=== PATIENT | female | born 1940 | race Caucasian/White ===

== ENCOUNTER 2017-02-08 13:44 | Emergency (ER) | payer MEDICARE, OTHER ==
[~2017-02-08] VITALS: Ht 147.3 cm; Wt 59.0 kg
[~2017-02-08 13:44] MED LIST: HYDR-762 PO; QUET25TA26 PO; SERT25TA83 PO
[2017-02-08] MEDS ORDERED: IBUPROFEN 600 MG TAB PO ONE (14:00)
[2017-02-08] MEDS ORDERED: LORAZEPAM 0.5 MG TAB PO ONE (14:00)
[2017-02-08] MEDS ORDERED: QUET25TA26 PO (14:13)
[2017-02-08] MEDS ORDERED: TRAM-40 PO (14:14)
[2017-02-08 14:40] VITALS: Ht 147.3 cm; Wt 59.0 kg
[2017-02-08 15:22] LABS: ADD UMIC YES; UR ASCORBIC ACID NEGATIVE (NEGATIVE); UR BACTERIA FEW /HPF (NONE SEEN); UR BILIRUBIN (Dip) NEGATIVE (NEGATIVE); UR BLOOD (Dip) 1+ mg/dL (NEGATIVE); UR CLARITY SLIGHTLY CLOUDY (CLEAR); UR COLOR YELLOW (YELLOW); UR GLUCOSE (Dip) NEGATIVE (NEGATIVE); UR KETONES (Dip) NEGATIVE (NEGATIVE); UR LEUKOCYTE ESTERASE (Dip) NEGATIVE Leu/ul (NEGATIVE); UR MUCUS FEW /HPF (NONE SEEN); UR NITRITE (Dip) NEGATIVE (NEGATIVE); UR RBC 0 /HPF (0-5); UR SPECIFIC GRAVITY (Dip) 1.013 (1.003-1.030); UR SQUAMOUS EPITHELIAL CELL FEW /HPF (FEW); UR TOTAL PROTEIN (Dip) NEGATIVE (NEGATIVE); UR UROBILINOGEN (Dip) NEGATIVE (NEGATIVE)
[2017-02-08] MEDS ORDERED: CEPHALEXIN 500 MG CAP PO ONE (16:30)
[2017-02-08] MEDS ORDERED: CEPH-443 PO (17:26)
[2017-02-08 17:55] VITALS: BP 136/82; PULSE 89; RESP 19; TEMP 98.8
--- NOTE | 2017-03-04 05:15 | ERD ---
ER Documentation Chief Complaint Date/Time DATE: 02/08/2017 TIME: 1400 Chief Complaint HPI 76-year-old woman here for evaluation after trip and fall while at the longterm. She denies any significant injury but states she suspects she has a urinary tract infection as she has had them before. She denies dizziness, no loss of consciousness, no head or neck injury, no paresis or paresthesias. She states she has recent burning with urination. ROS All systems reviewed and are negative except as per history of present illness. Medications Home Meds Active Scripts Cephalexin* (Keflex*) 500 Mg Capsule, 500 MG PO QID for 5 Days, CAP Prov:CYNTHIA RINCON MD 02/08/17 Reported Medications Tramadol Hcl* (Ultram*) 50 Mg Tablet, 50 MG PO BID Y for PAIN, TAB 02/08/17 Quetiapine Fumarate* (Seroquel*) 25 Mg Tablet, 25 MG PO TID, #90 TAB 02/08/17 Sertraline Hcl* (Sertraline Hcl*) 25 Mg Tablet, 25 MG PO QAM, TAB 02/04/15 Allergies Allergies: Coded Allergies: Sulfa (Sulfonamide Antibiotics) (Unverified Allergy, Unknown, 02/08/17) codeine (Verified Allergy, Unknown, 02/08/17) PMhx/Soc History of Surgery: Yes (ABD (CYSTS, OVARY REMOVED), SPINAL LAMINECTOMY) Hx Alcohol Use: No Hx Substance Use: No Hx Tobacco Use: No FmHx Family History: No diabetes Physical Exam Vitals Vital signs per nursing Physical Exam GENERAL: Well-developed, well-nourished, appears anxious HEENT: Moist mucous membranes, pink conjunctiva, no cervical spine tenderness or step-off deformities, no goiter, no jaundice or icterus, extraocular movements intact without pain. No submandibular induration, and no pharyngeal erythema NEURO: Alert and oriented 3, cranial nerves II through XII intact bilaterally, pupils equal round reactive to light, no focal deficits or facial asymmetry, sensation intact distally Strength 5/5 in upper and lower extremities bilaterally CARDIAC: Regular rate and rhythm, no murmurs rubs or gallops LUNGS: Clear bilaterally no wheezing crackles or stridor ABDOMEN: Soft nontender, no guarding, no rigidity, no rebound, no psoas sign no obturator sign. Normoactive bowel sounds SKIN: Warm and dry to touch, no abrasions, contusions, or hematomas, no lacerations, no ecchymosis, no target lesions, and without ulcers EXTREMITIES: No clubbing cyanosis or edema, calves are bilaterally symmetrical, no Homans sign, no popliteal cord sign. Distal pulses equal and bilateral PSYCH: Anxious Results 24 hrs Laboratory Tests Test 02/08/17 15:00 Urine Color YELLOW Urine Clarity SLIGHTLY CLOUDY Urine pH 5.0 Urine Specific [place] 1.013 Urine Ketones NEGATIVEmg/dL Urine Nitrite NEGATIVEmg/dL Urine Bilirubin NEGATIVEmg/dL Urine Urobilinogen NEGATIVEmg/dL Urine Leukocyte Esterase NEGATIVELeu/ul Urine Microscopic RBC 0/HPF Urine Microscopic WBC 1/HPF Urine Squamous Epithelial Cells FEW/HPF Urine Bacteria FEW/HPF Urine Mucus FEW/HPF Urine Hemoglobin 1+mg/dL Urine Glucose NEGATIVEmg/dL Urine Total Protein NEGATIVEmg/dl Current Medications Medications (Trade) Dose Ordered Sig/Brown Route PRN Reason Start Time Stop Time Status Last Admin Dose Admin Lorazepam (Ativan) 0.5 mg ONCE ONCE PO 02/08/17 14:00 02/08/17 14:02 DC 02/08/17 15:45 Ibuprofen (Motrin) 600 mg ONCE ONCE PO 02/08/17 14:00 02/08/17 14:02 DC 02/08/17 15:45 Cephalexin (Keflex) 500 mg ONCE ONCE PO 02/08/17 16:30 02/08/17 16:31 DC 02/08/17 16:32 Procedures/MDM I administered ibuprofen 600 mg p.o., and lorazepam 1 mg p.o. for her symptoms. Urine analysis was concerning for urinary tract infection especially given her symptoms so I administered cephalexin 500 mg p.o. Differential diagnoses considered, included but not limited to acute coronary syndrome, pulmonary embolism, aortic dissection, abdominal aortic aneurysm, sepsis, stroke, meningitis, encephalitis, pneumonia, appendicitis, cholecystitis , bowel obstruction, pyelonephritis, nephrolithiasis, cystitis, as well as metabolic, hematologic, and electrolyte abnormalities. As well as abscess, cellulitis, fractures, and dislocations. Patient feels much better at this time, and vital signs are normal, symptoms have improved. I did give strict instructions to return to the ED if symptoms continue or worsen, patient will otherwise follow-up with primary care physician. Patient understood instructions and agreed to plan. Disclaimer: Inadvertent spelling and grammatical errors are likely due to EHR/ dictation software use and do not reflect on the overall quality of patient care. Also, please note that the electronic time recorded on this note does not necessarily reflect the actual time of the patient encounter. Departure Diagnosis: Primary Impression: Fall with no significant injury Encounter type: initial encounter Qualified Code: W19.XXXA - Fall with no significant injury, initial encounter Additional Impression: Acute urinary tract infection Condition: Good Patient Instructions: [place] Form- 1, Fall, Mechanical, Bladder Infection, Female (Adult) Referrals: KRISTINE RUTHERFORD MD (PCP) CYNTHIA RINCON MD Mar 04, 2017 05:14
== END 2017-02-08 18:34 | disposition left against medical advice (07) ==
LOC: E/R 13:44
DX: N39.0 Urinary tract infection, site not specified (principal); R40.2142 Coma scale, eyes open, spontaneous, at arrival to emergency department; R40.2252 Coma scale, best verbal response, oriented, at arrival to emergency department; R40.2362 Coma scale, best motor response, obeys commands, at arrival to emergency department
CPT/HCPCS: 81001; 99283

== ENCOUNTER 2017-04-20 13:07 | Emergency (ER) | payer MEDICARE, OTHER ==
[~2017-04-20] VITALS: Wt 65.0 kg
[~2017-04-20 13:07] MED LIST changes: +CEPH-443 PO; -HYDR-762 PO; +TRAM-40 PO
[2017-04-20] MEDS ORDERED: ACETAMINOPHEN 500 MG TAB PO STA (13:21)
[2017-04-20] MEDS ORDERED: ONDANSETRON (ODT) 4 MG TAB ODT STA (13:30)
--- NOTE | 2017-04-20 13:52 | RADRPT ---
PROCEDURE: XR Knee. CLINICAL INDICATION: Trauma TECHNIQUE: Three views of the left knee are available for review. COMPARISON: None available FINDINGS: The medial and lateral femorotibial compartments are preserved, as is the patellofemoral compartment . There is no acute osseous abnormality, marginal erosion or evidence of fracture. Bone mineral dens ity appears diminished. A joint effusion is not seen. IMPRESSION: 1. Decreased bone mineral density without radiographic evidence of fracture. 2. Trace joint effusion. RPTAT: UU .Serafin Sanchez MD, MD Date Time Electronically viewed and signed by .Serafin Sanchez MD, MD on 04/20/2017 13:52 .d/
--- NOTE | 2017-04-20 15:03 | RADRPT ---
PROCEDURE: CT brain without contrast CLINICAL INDICATION: Fall, bruised forehad TECHNIQUE: CT of the brain without contrast performed on a multidetector CT scanner, with multiplan ar reformats. One or more of the following dose reduction techniques were used: Automated exposure control, adjustment in mA and / or kV according to patient size, use of iterative reconstructive noah hnique. CTDIvol = 45 mGy; DLP = 720 mGy-cm. COMPARISON: CT brain 02/04/2015 FINDINGS: There is mild frontal scalp swelling without underlying fracture. No acute intracranial hemorrhage is identified. No extra-axial fluid collection is seen. There is no mass effect. No midline shift is identified. The ventricles and sulci are - moderately enlarged compatible with volume loss. There are mild to moderate areas of hypodensity in the periventricular - deep white matter which are nonspecific but suggestive of chronic small vessel ischemic changes. Basurto-white differentiation is preserved. Atherosclerotic calcifications of the intracranial internal carotid arteries are noted. Calvarium and skull base are intact. Partial posterior left ethmoid air cell opacification is noted . IMPRESSION: 1. Mild frontal scalp swelling, without underlying fracture, or evidence of acute intracranial path ology. 2. Mild - moderate volume loss and chronic small vessel ischemic changes. RPTAT: VV .Benito Schroeder MD, Date Time Electronically viewed and signed by .Benito Schroeder MD, MD on 04/20/2017 15:03 .O/
--- NOTE | 2017-04-20 15:10 | RADRPT ---
PROCEDURE: CT cervical spine without contrast. CLINICAL INDICATION: Fall, neck pain TECHNIQUE: CT of the cervical spine without contrast was performed on a multidetector CT scanner, w ith multiplanar reformats. One or more of the following dose reduction techniques were used: Automa stanley exposure control, adjustment in mA and / or kV according to patient size, use of iterative recon structive technique. CTDIvol = 22 mGy and DLP = 431 mGy-cm. COMPARISON: CT cervical spine 02/04/2015 FINDINGS: There is generalized osteopenia. No fracture or dislocation is identified. There is preservation o f the lordosis of the cervical spine. There is trace anterolisthesis at C7-T1. The vertebral melody s are maintained in height. There elastic degenerative changes and anterior osteophytes at C3-4 th rough C6-7. There is disk space narrowing, moderate - severe at C3-4, C5-6, C6-7. C2-3: No disk bulge or herniation is seen. There is no central canal stenosis or foraminal narrowin g. C3-4: There is a posterior disk/osteophyte with mild central canal stenosis. There are uncovertebra l osteophytes and facet arthropathy with mild right, mild-moderate left foraminal narrowing. C4-5: There is posterior disk bulging with mild central canal stenosis. There is facet arthropathy without foraminal narrowing seen. C5-6: There is a posterior disk/osteophyte with mild to moderate central canal stenosis. There are uncovertebral osteophytes and facet arthropathy with moderate right and severe left foraminal narrow ing. C6-7: There is a posterior disk/osteophyte with mild central canal stenosis. There are uncovertebr al osteophytes and facet arthropathy with moderate right, mild - moderate left foraminal narrowing. C7-T1: No disk bulge or herniation is seen. There is facet arthropathy. There is no central canal stenosis or foraminal narrowing. IMPRESSION: 1. No fracture/dislocation. 2. Cervical spondylosis/degenerative enthesopathy with mild to moderate central stenosis at C5-6, a dditional multilevel mild central stenoses and multilevel foraminal narrowing outlined in detail abo arina. RPTAT: VV .Benito Schroeder MD, Date Time Electronically viewed and signed by .Benito Schroeder MD, MD on 04/20/2017 15:09 .O/
[2017-04-20] MEDS ORDERED: IBUP-1542 PO (15:26)
--- NOTE | 2017-04-20 15:28 | ERD ---
ER Documentation Chief Complaint Date/Time DATE: 04/20/17 TIME: 15:27 Chief Complaint L LEG PAIN FROM A GLF LAST NIGHT. NO DEFORMITY NOTED. NO LOC OR DIZZINESS HPI Patient is a 76-year-old female with hepatitis C presents with a fall. Please note the history and physical exam is limited secondary to the patient's mental status at baseline. The patient was brought in by ambulance. She came from a nursing facility. She says "I fell 5 minutes ago". She does not remember what happened. She has a bruise to the middle of her forehead and left-sided knee pain. Upon review of old medical records this is the patient's sixth visit to the ER since 2012. She does not currently have a primary doctor. ROS All systems reviewed and are negative except as per history of present illness. Medications Home Meds Active Scripts Ibuprofen* (Motrin*) 600 Mg Tab, 600 MG PO Q8, #30 TAB Prov:ABDULAZIZ MABRY MD 04/20/17 Reported Medications Tramadol Hcl* (Ultram*) 50 Mg Tablet, 50 MG PO BID Y for PAIN, TAB 02/08/17 Quetiapine Fumarate* (Seroquel*) 25 Mg Tablet, 25 MG PO TID, #90 TAB 02/08/17 Sertraline Hcl* (Sertraline Hcl*) 25 Mg Tablet, 25 MG PO QAM, TAB 02/04/15 Discontinued Scripts Cephalexin* (Keflex*) 500 Mg Capsule, 500 MG PO QID for 5 Days, CAP Prov:CYNTHIA RINCON MD 02/08/17 Allergies Allergies: Coded Allergies: Sulfa (Sulfonamide Antibiotics) (Unverified Allergy, Unknown, 02/08/17) codeine (Verified Allergy, Unknown, 02/08/17) PMhx/Soc History of Surgery: Yes (ABD (CYSTS, OVARY REMOVED), SPINAL LAMINECTOMY) Anesthesia Reaction: No Hx Neurological Disorder: No Hx Respiratory Disorders: No Hx Cardiac Disorders: No Hx Psychiatric Problems: No Hx Miscellaneous Medical Probl: Yes (DEMENTIA) Hx Alcohol Use: No Hx Substance Use: No Hx Tobacco Use: No Smoking Status: Never smoker FmHx Family History: No diabetes Physical Exam Vitals Vital Signs Date Time Temp Pulse Resp B/P Pulse Ox O2 Delivery O2 Flow Rate FiO2 04/20/17 16:37 98.8 50 17 112/51 98 Room Air 04/20/17 13:22 98.8 79 20 128/78 98 Physical Exam Const: No acute distress Head: Bruising to the mid forehead without crepitus Eyes: Normal Conjunctiva ENT: Normal External Ears, Nose and Mouth. Neck: Full range of motion..~ No meningismus. Resp: Clear to auscultation bilaterally Cardio: Regular rate and rhythm, no murmurs Abd: Soft, non tender, non distended. Normal bowel sounds Skin: Bruising to mid forehead Back: No midline or flank tenderness Ext: No cyanosis, or edema Neur: Awake But demented Results 24 hrs Laboratory Tests Test 04/20/17 13:47 Bedside Glucose 140mg/dL Current Medications Medications (Trade) Dose Ordered Sig/Brown Route PRN Reason Start Time Stop Time Status Last Admin Dose Admin Acetaminophen (Tylenol Tab) 1,000 mg ONCE STAT PO 04/20/17 13:21 04/20/17 13:22 DC 04/20/17 14:02 Ondansetron HCl (Zofran Odt) 4 mg ONCE STAT ODT 04/20/17 13:30 04/20/17 13:31 DC 04/20/17 14:02 Procedures/MDM EKG read by me: Rate/Rhythm: Sinus bradycardia at a rate of 51 Intervals: Normal Impression: Sinus bradycardia without ischemia CT brain and CT cervical spine shows no fracture or intracranial hemorrhage per radiology. X-ray of the left knee shows no fracture or dislocation per radiology. Patient is a 76-year-old female who presents with a fall. CT scan of the head and cervical spine are negative. X-ray shows no fracture of the knee. At this point I believe outpatient management is appropriate and the patient will be discharged back to her nursing facility. She can return for any worsening symptoms. I doubt serious traumatic injury. She should have close follow-up with a primary doctor within 24-48 hours. Departure Diagnosis: Primary Impression: Concussion Encounter type: initial encounter Loss of consciousness presence/duration: without LOC Qualified Code: S06.0X0A - Concussion without loss of consciousness, initial encounter Additional Impression: Fall Encounter type: initial encounter Qualified Code: W19.XXXA - Fall, initial encounter Condition: Fair Patient Instructions: After a Concussion, Fall, Mechanical Additional Instructions: Call your primary care doctor TOMORROW for an appointment during the next 1-2 days.See the doctor sooner or return here if your condition worsens before your appointment time. ABDULAZIZ MABRY MD Apr 20, 2017 15:28
[2017-04-20 16:37] VITALS: BP 112/51; PULSE 50; RESP 17; TEMP 98.8
== END 2017-04-20 16:40 | disposition home or self-care (01) ==
LOC: E/R 13:07
DX: S06.0X0A Concussion without loss of consciousness, initial encounter (principal); R40.2142 Coma scale, eyes open, spontaneous, at arrival to emergency department; R40.2252 Coma scale, best verbal response, oriented, at arrival to emergency department; R40.2362 Coma scale, best motor response, obeys commands, at arrival to emergency department; M54.2 Cervicalgia; W18.39XA Other fall on same level, initial encounter; Y92.9 Unspecified place or not applicable
CPT/HCPCS: 70450; 72125; 73562; 82962; 93005